=== PATIENT | female | born 2000 | race Caucasian/White ===

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

== ENCOUNTER 2019-01-02 09:28 | Emergency (ER) | payer OTHER ==
[2019-01-02 09:40] VITALS: BP 117/69
--- NOTE | 2019-01-02 10:18 | UC ---
UC Dental HPI - HPI Summary HPI Summary: 18 yo female 34 weeks presents with dental pain x 3 days has taken amox no fever no heart murmur - History of Current Complaint Chief Complaint: UCDentalProblem Stated Complaint: DENTAL PAIN Time Seen by Provider: 01/02/19 10:15 Hx Obtained From: Patient Hx Last Menstrual Period: 05/07/19 Onset/Duration: Gradual Onset Severity: Severe Pain Intensity: 10 Pain Scale Used: 0-10 Numeric Aggravating Factor(s): Chewing Alleviating Factor(s): Nothing Related History: Swelling Dental: 1 - abscess - Allergies/Home Medications Allergies/Adverse Reactions: Allergies Allergy/AdvReac Type Severity Reaction Status Date / Time No Known Allergies Allergy Verified 01/02/19 09:34 Home Medications: Home Medications Amoxicillin PO (*) [Amoxicillin 500 MG CAP*] 500 mg PO BID 01/02/19 [History Confirmed 01/02/19] PMH/Surg Hx/FS Hx/Imm Hx Previously Healthy: Yes - Surgical History Surgical History: Yes Surgery Procedure, Year, and Place: Tear-duct repair as an , DENTAL SURGERY 2016 - Family History Known Family History: Positive: None - Pt denies FMHX, Non-Contributory Family History: no cardio vascular issues in family lineage - Social History Alcohol Use: None Substance Use Type: None Smoking Status (MU): Never Smoked Tobacco Have You Smoked in the Last Year: No Household Exposure Type: Cigarettes - Immunization History Most Recent Influenza Vaccination: Unsure Most Recent Pneumonia Vaccination: Never Vaccination Up to Date: Yes Review of Systems All Other Systems Reviewed And Are Negative: Yes Constitutional: Positive: Negative Skin: Positive: Negative ENT: Positive: Dental Pain Cardiovascular: Positive: Negative Gastrointestinal: Positive: Negative Genitourinary: Positive: Negative Motor: Positive: Negative Neurovascular: Positive: Negative Musculoskeletal: Positive: Negative Neurological: Positive: Negative Psychological: Positive: Negative Physical Exam Triage Information Reviewed: Yes Appearance: Well-Appearing, No Pain Distress, Well-Nourished Vital Signs: Initial Vital Signs Temp 97.8 F 01/02/19 09:35 Pulse 75 01/02/19 09:35 Resp 16 01/02/19 09:35 BP 117/69 01/02/19 09:35 Pulse Ox 100 01/02/19 09:35 Vital Signs Reviewed: Yes Eyes: Positive: Conjunctiva Clear ENT: Positive: Hearing grossly normal. Negative: Nasal congestion, Nasal drainage, Trismus, Muffled voice, Hoarse voice Dental: Positive: Abscess @, Other: - see image Neck: Positive: Supple, Nontender, No Lymphadenopathy Respiratory: Positive: Lungs clear, Normal breath sounds, No respiratory distress, No accessory muscle use Cardiovascular: Positive: RRR, No Murmur Abdomen Description: Positive: Other: - gravid uterus Musculoskeletal: Positive: No Edema Neurological: Positive: Alert Psychological: Positive: Normal Response To Family Skin Exam: Normal Dental Complaint Course/Dx - Differential Dx/Diagnosis Provider Diagnosis: Dental abscess Discharge - Sign-Out/Discharge Documenting (check all that apply): Patient Departure All imaging exams completed and their final reports reviewed: No Studies - Discharge Plan Condition: Stable Disposition: HOME Prescriptions: Penicillin VK 500 MG TAB(NF) [Penicillin VK 500 mg Tab] 500 mg PO QID #28 tab Patient Education Materials: Dental Abscess (ED) Forms: *Work Release Referrals: No Primary Care Phys,NOPCP [Primary Care Provider] - Additional Instructions: tylenol as needed for pain heat recheck for worsening symptoms recheck in 48 hours if not improved - Billing Disposition and Condition Condition: STABLE Disposition: Home
== END 2019-01-02 10:30 | disposition home or self-care (01) ==
LOC: UCEAST 09:28
DX: O26.893 Other specified pregnancy related conditions, third trimester (principal); K04.7 Periapical abscess without sinus; Z3A.34 34 weeks gestation of pregnancy
CPT/HCPCS: 99212; G0463

== ENCOUNTER 2019-02-05 23:22 | Inpatient (IN) | payer OTHER ==
[2019-02-06 00:18] LABS: Urine Benzodiazepine Screen None Detected (None Detect); Urine Opiates Screen None Detected (None Detect)
[2019-02-06] MEDS ORDERED: Nalbuphine* 10 MG/ML 1 ML VIAL IM ONE (01:34)
[2019-02-06] MEDS ORDERED: Promethazine INJ(RESTRICTED)* 25 MG/ML 1 ML VIAL IM ONE (01:35)
--- NOTE | 2019-02-06 05:41 | PN ---
L&D Outpatient: Visit - Reproductive Information Estimated Due Date: 02/11/19 Gestational Age: 39 Weeks and 2 Days : 1 Para: 0 - Reason for Visit Visit Reason: Pt reports ctx increasing in strength and frequency. Denies LOF. Reports active FM. - Antepartal Records Antepartal Record: Reviewed, Uncomplicated - Rh negative - Patient History Patient History Significant: Yes Patient History Significant For: Depression Review of Systems Constitutional: Uncomfortable CV Complaint: No Respiratory: Shortness of Breath: No Gastrointestinal: No Nausea/Vomiting, Normal Bowel Movement Genitourinary: No Dysuria, No Bleeding, No Leaking Fluid Musculoskeletal: No Epigastric Pain, Contractions Neurological: No Headache, No Visual Changes Movement: Normal L&D Outpatient: Exam Vitals - Most Recent: BP- 133/75, T-98.7, P-82, R-18 Lab Values - Entire Visit: Laboratory Tests 02/05/19 23:45 Urine Opiates Screen None detected Ur Barbiturates Screen None detected Ur Phencyclidine Scrn None detected Ur Amphetamines Screen None detected U Benzodiazepines Scrn None detected Urine Cocaine Screen None detected U Cannabinoids Screen None detected - Cervical Exam Cervical Exam: 3-4 cm/ 100%/ 0 station/ vtx - Abdominal Exam Abdomen Exam: Non-Tender, Fundal Height Consistent with Dates - Membranes Membrane Status: Intact - Ultrasound/Biophysical Profile Ultrasound Status: Not Done EFM Findings - External Monitor Findings Baseline Heart Rate: 125 External Monitor Findings: Accelerations Present, No Pattern of Variable or Late Decelerations, Variability Moderate, Baseline Stable Contractions: Regular, Moderate, 45-90 Seconds Contraction Frequency: 3-4 L&D Outpatient: Asses/Plan Assessment: 18 year old at 39 2/7 weeks gestation in early labor. No evidence of acidemia. - Discharge Diagnosis Discharge Diagnosis: Supervision-Normal Preg Plan: Continue Observation
[2019-02-06] MEDS ORDERED: Buffered Lidocaine 1% SYRIN* 1 ML/SYRINGE INTRADERM ONE (08:53)
--- NOTE | 2019-02-06 09:04 | HP ---
General Information - Reason for Visit IUP at 39 in labor - General Information Maternal Age: 18 Grav: 1 Para: 0 SAB: 0 IEA: 0 Estimated Due Date: 02/11/19 Determined By: LMP Gestational Age in Weeks/Days: 39 Maternal Blood Type and Rh: B Negative - Results this Serology/RPR Result: Non-Reactive Rubella Result: Immune HBsAg Result: Negative HIV Result: Negative GBS Culture Result: Negative Past Medical History Delivery History: See Records Delivery History Comment: Primip Pertinent Past Medical History: Non-Contributory Pertinent Past Surgical History: See Records Past Surgical History Comment: surgery to unclog a blocked tear duct Pertinent Family History: Non-Contributory - Antepartal Records Antepartal Records: Reviewed, Uncomplicated - Rh negative. Received RhoGAM Review of Systems Constitutional: Uncomfortable CV Complaint: No Respiratory: Shortness of Breath: No Gastrointestinal: No Nausea/Vomiting, Normal Bowel Movement Genitourinary: No Dysuria, No Bleeding, No Leaking Fluid Musculoskeletal: Contractions Neurological: No Headache, No Visual Changes Movement: Normal Exam Allergies/Adverse Reactions: Allergies No Known Allergies Allergy (Verified 01/02/19 09:34) Lab Values - Entire Visit: Laboratory Tests 02/05/19 23:45 Urine Opiates Screen None detected Ur Barbiturates Screen None detected Ur Phencyclidine Scrn None detected Ur Amphetamines Screen None detected U Benzodiazepines Scrn None detected Urine Cocaine Screen None detected U Cannabinoids Screen None detected - Measurements Height: 5 ft Weight: 168 lb Weight in lbs: [phone] Body Mass Index (BMI): 32.8 Pre- Weight: 132 lb Weight Gained This : 36 lbs and 0 ozs - Exam Breast: Breast Exam Deferred CVA: No CVA Tenderness Extremities: No Edema Heart: Normal Rhythm/Heart Sounds HEENT: No Significant Findings Lungs: Clear Bilaterally Rectal: Rectal Exam Deferred Reflexes: DTR 2+ Thyroid: No Thyromegaly - Abdominal Exam Abdomen Exam: Non-Tender - Ultrasound/Biophysical Profile Ultrasound Status: Not Done Targeted Exam Findings See L&D Outpatient Visit Provider Note for Findings: Yes Estimated Weight: 7lbs by Masoud Cervical Exam: 3cm Effacement: 90% Membrane Status: Intact Sterile Speculum Exam: Not done Bleeding/Discharge: None EFM Findings - External Monitor Findings Baseline Heart Rate: 125 External Monitor Findings: Accelerations Present, No Pattern of Variable or Late Decelerations, Variability Moderate, Baseline Stable External Monitor Findings Comment: No evidence of metabolic acidemia Contractions: Regular, Mild, Moderate Contraction Frequency: q 2-4 min Assessment/Plan - Assessment IUP at 39-2/7 in labor No evidence of metabolic acidemia - Plan Plan: Admit - Anticipate Vaginal Delivery Plan Comment: Pt hoping for minimal intervention. Desires unmedicated . Discussed position changes, tub or shower, rest as she can. FOB, pt's mother and FOB's mother at bedside for support. Will continue to monitor for now. - Date/Time of Admission Date of Admission: 02/06/19 Time of Admission: 08:46
--- NOTE | 2019-02-06 11:42 | PN ---
Progress Note - Progress Note Date of Service: 02/06/19 Note: Quick Note: Pt increasingly uncomfortable. Struggling with UCs. After discussion with RN desires trial of nitrous oxide for pain relief. Order input.
[2019-02-06 11:59] LABS: Urine Benzodiazepine Screen None Detected (None Detect); Urine Opiates Screen None Detected (None Detect)
--- NOTE | 2019-02-06 12:15 | PN ---
Progress Note - Progress Note Date of Service: 02/06/19 Note: S: Pt much more relaxed using the Nitrous. Family and RN remain at bedside supporting her O: BP 119/88 HR 80bpm SpO2 100% on RA T98.1 FHT 130bpm. Moderate variability. +Accels. No decels UCs q 2-4 VE 3-4cm/100%/vtx -1, BBOW (band of tissue noted at introitus covering the left lower quadrant. Non-tender to palpation, reduces to the side) A: IUP at 39-2/7 in labor No evidence of metabolic acidemia P: Bedside support. Continue expectant management for now
[2019-02-06] MEDS ORDERED: Ondansetron INJ* 2 MG/ML VIAL IV ONE (13:49)
[2019-02-06] MEDS ORDERED: Lactated Ringers 1000 ML Bag* 1,000 ML IV SCH (14:00)
[2019-02-06 14:56] LABS: ABS Lymphocytes 1.2 10^3/ul (1.0-4.8); ABS Monocytes 0.7 10^3/ul (0-0.8); Eosinophil % 0.1 %; Hematocrit 40 % (35-47); Hemoglobin 13.5 g/dL (12.0-16.0); Lymphocyte % 9.7 %; Mean Corpuscular HGB Conc 34 g/dL (31-36); Mean Corpuscular Hemoglobin 29 pg (27-31); Mean Corpuscular Volume 86 fL (80-97); Mean Platelet Volume 8.9 fL (7.4-10.4); Platelet Count 263 10^3/uL (150-450); Red Blood Count 4.61 10^6 /uL (3.70-4.87); Red Cell Distribution Width 15 % (10-15); White Blood Count 12.9 10^3/uL (3.5-10.8)
[2019-02-06] MEDS ORDERED: OBEPIDURAL* 250 ML EPIDURAL ONE (16:14)
[2019-02-06] MEDS ORDERED: fentaNYL* 50 MCG/ML 2 ML VIAL (100 MCG VIAL) ONE (16:19)
--- NOTE | 2019-02-06 16:21 | PN ---
Progress Note - Progress Note Date of Service: 02/06/19 Note: S: Pt would like to discuss ongoing pain relief options. She's feeling exhausted and doesn't find that the nitrous is helping anymore. Verbalizes fear of needle used for epidural placement. Was hoping to avoid but really uncomfortable and would like to discuss. O: BP 120/61 HR 66 RR 16 T 98.1 FHT 120bpm. Moderate variability. +Accels. No decels UCs q 2-4 min VE 4-5/100%/vtx -1, BBOW A: IUP at 39-2/7 in labor No evidence of metabolic acidemia Poor coping P: Lengthy review of pain relief options including IV Nubain/Phenergan and epidural analgesia. Many questions answered. After providing family time and space to discuss pain relief options pt requests epidural placement. Anesthesia paged for consult
--- NOTE | 2019-02-06 17:42 | PN ---
Progress Note - Progress Note Date of Service: 02/06/19 Note: S: Pt comfortable s/p CEI placement O: VSS, afebrile FHT 125bpm. Moderate variability. +Accels. No decels UCs q 2-4 VE 5cm/100%/vtx -1, AROM to light meconium A: IUP at 39-2/7 in labor No evidence of metabolic acidemia P: PARQ amniotomy. Pt and FOB agree, done. Enc rest. Will continue to monitor maternal/ status closely
--- NOTE | 2019-02-06 20:22 | PN ---
Progress Note - Progress Note Date of Service: 02/06/19 Note: S: Pt's family reports urge to push. Upon arrival at bedside pt sound asleep. Offered VE which she desired O: BP 114/58 HR 80bpm T 98.3 FHT 130bpm. Moderate variability. +Accels. No decels UCs q 2-4 min VE 8cm/100%/vtx -1 A: IUP at 39-2/7 in labor No evidence of metabolic acidemia P: Enc rest. Continue to monitor closely. Anticipate trial of pushing soon
--- NOTE | 2019-02-06 22:53 | PN ---
Progress Note - Progress Note Date of Service: 02/06/19 Note: S: Pt increasingly uncomfortable. C/O increased leaking of fluid, pressure and urge to push but no spontaneous efforts yet. Has been using CEI bolus button with minimal relief. O: BP 124/74 HR 94 T 98.3 FHT 120bpm. Moderate variability. +Accels. No decels UCs q 1.5-3 VE 9.5cm/100%/vtx 0 station, unable to reduce cervix with UC A: IUP at 39-2/7 in labor No evidence of metabolic acidemia Poor coping P: Anesthesia paged for consult to see if bolus appropriate. Anticipate trial of pushing soon
[2019-02-06] MEDS ORDERED: Oxytocin in LR* 20 UNITS/1,000 ML BAG IVPB ONE (23:44)
[2019-02-07] MEDS ORDERED: Glycerin ADULT SUPP PR PRN (00:47)
[2019-02-07] MEDS ORDERED: RHO D Immune Globulin (HUMAN)* 300 MCG = 1,500 I.U. INJ IM ONE (00:47)
--- NOTE | 2019-02-07 00:56 | PROCNOTE ---
[facility] OB: Delivery Note - Delivery A Date of : 02/07/19 Time of : 00:10 [place] Sex: Female - "Zy'Kirstin" Score 1 Minute: 9 Score 5 Minutes: 9 Gestational Age in Weeks and Days at Delivery: 39 Weeks and 3 Days Delivery Method: Spontaneous Vaginal Labor: Spontaneous Did Patient attempt ?: N/A, No Previous Amniotic Fluid: Meconium - stained Estimated Blood Loss: 250 Anesthesia/Analgesia: CEI for Labor - placed by Dr. Tomas. Bolused by Dr. Levine, Nitrous-Labor - prior to epidural placement Delivered By: Carlos Benitez - Nursery Level of Nursery: Regular/Bedside - Perineum Perineal Injury Comment: right sublabial repaired with 4-0 and 3-0 Rapide Perineal Repair: Dr. Aguirre to bedside to evaluate patent labia minora present prior to delivery for possible repair. See MD consult note - Events Delivery Events of Note: Supplemental O2 to Mother - with pushing - Additional Delivery Notes Additional Delivery Notes: Pt admitted in labor. Received epidural with excellent relief. Amniotomy to clear fluid with expected progression to complete. Pushed x 35 min. Category II FHT with pushing. Moderate variability maintained. O2 by mask. liveborn female. Slow, controlled delivery of head. OA to RACHEL. Shoulders followed easily. vigorous with spontaneous cry. HR>110bpm. Delivered to maternal abdomen. Short cord noted. Cord clamped x 2 and cut by FOB when pulsations ceased. Spontaneous delivery intact placenta. Membranes complete. Fundus firm to massage with IV pitocin infusing. Repair as above. EBL 250mL. At time of note mother and in stable condition. Planning to breast feed. In labor vaginal wall defect palpated. Dr. Aguirre to bedside to assess for correction. See MD consult note.
[2019-02-07] MEDS ORDERED: Oxytocin in LR* 20 UNITS/1,000 ML BAG IVPB SCH (01:00)
[2019-02-07] MEDS ORDERED: Lactated Ringers 1000 ML Bag* 1,000 ML IV SCH (01:00)
--- NOTE | 2019-02-07 01:27 | PN ---
Progress Note - Progress Note Date of Service: 02/07/19 Note: Called to evaluate pt for vaginal abnormality. During exams while in labor a "hole" was noticed along the left side of the vaginal opening. The pt did note that she had several instances of tampons getting stuck. Upon exam after delivery the left side of the hymenal ring had a 1.5cm opening with about 1cm of tissue medial to it. It did not tear during delivery. There was minimal swelling. Epidural provided adequate analgesia. An 11 blade was used to incise along the internal edges of the opening. 4-0 monocryl was used to reapproximate the tissue with 3 interrupted sutures. The bottom of the hymenal on the left side was then reattached where it tore during delivery. This was done with 4-0 monocryl in a running unlocked fashion.
[2019-02-07] MEDS: Ibuprofen TAB* 600 MG PO SCH ×5 (03:22→20:12)
[2019-02-07] MEDS ORDERED: Simethicone TAB* 80 MG TAB.CHEW PO SCH (08:30)
[2019-02-07] MEDS: Docusate CAP* 100 MG PO SCH ×3 (08:32→20:12)
[2019-02-07] MEDS: Acetaminophen TAB* 325 MG PO PRN ×2 (08:32→17:00)
[2019-02-07 13:11] LABS: ABS Eosinophils 0.1 10^3/ul (0-0.6); ABS Lymphocytes 1.7 10^3/ul (1.0-4.8); ABS Monocytes 1.3 10^3/ul (0-0.8); ABS Neutrophils 8.8 10^3/ul (1.5-7.7); Eosinophil % 1.2 %; Hematocrit 31 % (35-47); Hemoglobin 10.4 g/dL (12.0-16.0); Lymphocyte % 14.4 %; Mean Corpuscular HGB Conc 34 g/dL (31-36); Mean Corpuscular Hemoglobin 29 pg (27-31); Mean Corpuscular Volume 87 fL (80-97); Mean Platelet Volume 8.5 fL (7.4-10.4); Platelet Count 203 10^3/uL (150-450); Red Blood Count 3.58 10^6 /uL (3.70-4.87); Red Cell Distribution Width 15 % (10-15); White Blood Count 12.1 10^3/uL (3.5-10.8)
[2019-02-07] MEDS: Witch Hazel PAD* JAR TOPICAL PRN (20:12)
[2019-02-07] MEDS: Dibucaine 1% 28.35 GM TUBE PR PRN (20:12)
[2019-02-08] MEDS: Ibuprofen TAB* 600 MG PO SCH ×3 (08:03→20:15)
[2019-02-08] MEDS: Docusate CAP* 100 MG PO SCH ×3 (08:03→21:52)
[2019-02-08] MEDS ORDERED: Ferrous Gluconate TAB* 324 MG TAB PO SCH (09:00)
[2019-02-08] MEDS: Witch Hazel PAD* JAR TOPICAL PRN (12:45)
[2019-02-08] MEDS: Dibucaine 1% 28.35 GM TUBE PR PRN (12:45)
[2019-02-08] MEDS: Acetaminophen TAB* 325 MG PO PRN ×3 (13:23→23:44)
[2019-02-09] MEDS: Ibuprofen TAB* 600 MG PO SCH (07:28)
[2019-02-09 08:55] VITALS: BP 117/64
[2019-02-09] MEDS: Acetaminophen TAB* 325 MG PO PRN (11:17)
== END 2019-02-09 11:25 | disposition home or self-care (01) | DRG 560 ==
LOC: MCHOBOUT 23:22 → MCHOB 02-06 08:46
PROVIDERS: ADMIT Midwife; ATTEND Midwife
PROC: 10E0XZZ Delivery of Products of Conception, External Approach (ICD-10-PCS; principal; 2019-02-07)
PROC: 10907ZC Drainage of Amniotic Fluid, Therapeutic from Products of Conception, Via Natural or Artificial Opening (ICD-10-PCS; 2019-02-07)
PROC: 4A1HXCZ Monitoring of Products of Conception, Cardiac Rate, External Approach (ICD-10-PCS; 2019-02-07)
PROC: 0UQMXZZ Repair Vulva, External Approach (ICD-10-PCS; 2019-02-07)
PROC: 0UQGXZZ Repair Vagina, External Approach (ICD-10-PCS; 2019-02-07)
PROC: 0HQ9XZZ Repair Perineum Skin, External Approach (ICD-10-PCS; 2019-02-07)
DX: O34.63 Maternal care for abnormality of vagina, third trimester (principal); Z37.0 Single live birth; O70.0 First degree perineal laceration during delivery; O77.0 Labor and delivery complicated by meconium in amniotic fluid; K04.7 Periapical abscess without sinus; O99.62 Diseases of the digestive system complicating childbirth; Z67.21 Type B blood, Rh negative; O99.344 Other mental disorders complicating childbirth; F32.9 Major depressive disorder, single episode, unspecified; O69.3XX0 Labor and delivery complicated by short cord, not applicable or unspecified; Z91.040 Latex allergy status; Z3A.39 39 weeks gestation of pregnancy
CPT/HCPCS: 36415; 80307; 85025; 86850; 86900; 86901; A9270-GY; J2300; J2405; J2550; J3010

== ENCOUNTER 2024-01-26 05:47 | Inpatient (IN) ==
[2024-01-26 06:41] LABS: ABS Eosinophils 0.1 10^3/uL (0.0-0.5); ABS Lymphocytes 1.8 10^3/uL (1.0-4.8); ABS Monocytes 0.6 10^3/uL (0.0-0.9); ABS Neutrophils 4.4 10^3/uL (1.5-7.6); Eosinophil % 1.5 %; Hematocrit 31.9 % (35-45); Hemoglobin 11.1 g/dL (11.5-14.3); Mean Corpuscular Hemoglobin 28.4 pg (27-33); Mean Corpuscular Hgb Conc 34.7 g/dL (31-36); Mean Corpuscular Volume 81.7 fL (80-97); Mean Platelet Volume 8.6 fL (7.5-11.2); Nucleated Red Blood Cells % 0.1 %/100WBC (0.0-0.8); Platelet Count 187 10^3/uL (150-450); Red Blood Count 3.91 10^6/uL (3.63-4.92); Red Cell Distribution Width 16.2 % (12-17)
[2024-01-26] MEDS ORDERED: Oxytocin 10 UNITS/ML 1 ML VIAL ONE (06:59)
[2024-01-26] MEDS ORDERED: Phenylephrine IV 10 MG/ML 1 ml VIAL ONE (06:59)
[2024-01-26] MEDS ORDERED: Ondansetron 4 mg VIAL 2 MG/ML 2 ml VIAL ONE (06:59)
[2024-01-26] MEDS ORDERED: Naloxone 0.4 mg VIAL 0.4 mg/ml 1 ml VIAL IV PUSH PRN (07:18)
[2024-01-26] MEDS ORDERED: Ondansetron 4 mg VIAL 2 MG/ML 2 ml VIAL IV PRN (07:18)
[2024-01-26] MEDS ORDERED: Morphine PF AMP (0.5MG/ML) 5 MG/10 ML AMP ONE (07:45)
[2024-01-26] MEDS ORDERED: Desflurane 240 ML INH ONE (08:07)
[2024-01-26] MEDS: ceFOXitin 2 GM IVPREMIX 2 GM/50 ML BAG IVPB ONE (08:54)
[2024-01-26] MEDS: Buffered Lidocaine 1% SYRIN 1 ml INTRADERM ONE (08:54)
[2024-01-26] MEDS: Lactated Ringers 1000 ml BAG 1,000 ML IV ONE (08:54)
[2024-01-26 09:21] LABS: Urine Appearance Clear; Urine Bilirubin Negative (Negative); Urine Blood Negative (Negative); Urine Color Colorless; Urine Glucose Negative (Negative); Urine Ketones Trace (Negative); Urine Nitrite Negative (Negative); Urine Protein Negative (Negative); Urine Specific Gravity 1.003 (1.002-1.030); Urine Urobilinogen Negative (Negative)
[2024-01-26] MEDS ORDERED: Witch Hazel PAD JAR TOPICAL PRN (09:23)
[2024-01-26] MEDS ORDERED: Dibucaine 1% OINT 28.35 GM TUBE PR PRN (09:23)
[2024-01-26] MEDS ORDERED: Glycerin ADULT 2.4 gm SUPP PR PRN (09:23)
[2024-01-26 09:38] LABS: Urine Benzodiazepine Screen None Detected (None Detect); Urine Cannabinoids Screen None Detected (None Detect); Urine Opiates Screen None Detected (None Detect)
[2024-01-26] MEDS: ceFOXitin 2 GM IVPREMIX 2 GM/50 ML BAG ONE (09:51)
[2024-01-26] MEDS: Oxytocin in LR 20,000 MILLI.UNIT/1,000 ML BAG IV SCH (09:51)
[2024-01-26] MEDS: Sodium Citrate/Citric Acid LIQ 15 ML UDC PO ONE (09:52)
[2024-01-26] MEDS ORDERED: Lactated Ringers 1000 ml BAG 1,000 ML IV SCH (10:00)
[2024-01-26] MEDS: Lactated Ringers 1000 ml BAG 1,000 ML IV SCH (10:57)
[2024-01-26] MEDS: Acetaminophen IV 1 GM/100ML 1,000 MG/100 ML BAG IV PRN (17:24)
[2024-01-27 09:56] LABS: ABS Eosinophils 0.1 10^3/uL (0.0-0.5); ABS Monocytes 0.7 10^3/uL (0.0-0.9); ABS Neutrophils 4.9 10^3/uL (1.5-7.6); Eosinophil % 0.8 %; Hematocrit 26.6 % (35-45); Hemoglobin 9.1 g/dL (11.5-14.3); Lymphocyte % 25.7 %; Mean Corpuscular Hemoglobin 29.1 pg (27-33); Mean Corpuscular Hgb Conc 34.3 g/dL (31-36); Mean Corpuscular Volume 84.9 fL (80-97); Platelet Count 148 10^3/uL (150-450); Red Blood Count 3.14 10^6/uL (3.63-4.92); Red Cell Distribution Width 16.2 % (12-17); White Blood Count 7.6 10^3/uL (3.8-11.8)
[2024-01-27] MEDS: Vitamins A & D OINT TUBE TOPICAL SCH (12:59)
[2024-01-28 08:21] VITALS: BP 117/62
[2024-01-28] MEDS: RHO D Immune Globulin (HUMAN) 300 MCG = 1,500 I.U. INJ IM ONE (11:58)
== END 2024-01-28 13:24 | disposition home or self-care (01) | DRG 540 ==
LOC: MCHOB 05:47
PROVIDERS: ADMIT Obstetrics & Gynecology; ATTEND Obstetrics & Gynecology